=== PATIENT | female | born 1955 ===

== ENCOUNTER 2017-10-07 09:39 | Emergency (ER) | payer OTHER ==
[2017-10-07 09:47] VITALS: BMI 32.3
--- NOTE | 2017-10-07 10:25 | ED PDOC ---
HPI: General Adult Time Seen by Provider: 10/07/17 10:22 Chief Complaint (Nursing): High Blood Pressure Chief Complaint (Provider): HTN History Per: Patient Additional Complaint(s): 61-year-old female with history of hypertension presents to emergency department with headache for 2 weeks. Patient states she has been noncompliant with hypertension meds which include valsartan, Coreg and amlodipine. Patient has not taken her meds in 2 weeks because she could not afford to get the medication. Patient states she is picking up her medications tomorrow from the pharmacy. She rates her headache as a 6 out of 10 upon arrival, denies any dizziness or vision changes, no chest pain, shortness of breath or dyspnea on exertion. Patient states headache is resolved when she takes Tylenol. PMD: Dr. John Paul Singh Past Medical History Reviewed: Historical Data, Nursing Documentation, Vital Signs Vital Signs: Last Vital Signs Temp 96.3 F L 10/07/17 09:48 Pulse 78 10/07/17 12:32 Resp 19 10/07/17 12:32 BP 180/80 H 10/07/17 12:32 Pulse Ox 98 10/07/17 12:32 - Medical History PMH: Asthma, CHF, Diabetes, HTN, Hypercholesterolemia - Surgical History Surgical History: Cholecystectomy, (x 2) - Family History Family History: States: No Known Family Hx - Living Arrangements Living Arrangements: With Family - Social History Current smoker - smoking cessation education provided: No Alcohol: None Drugs: Denies - Home Medications Home Medications: Ambulatory Orders Medication Instructions Recorded Albuterol HFA [Ventolin HFA 90 2 puff IH [id number] PRN #1 inhaler 10/23/14 mcg/actuation (8 g)] Atorvastatin [Lipitor] 40 mg PO DAILY 01/28/15 Chlorthalidone [Chlorthalidone] 25 mg PO DAILY 01/28/15 Fenofibrate [Tricor] 145 mg PO DAILY 01/28/15 Insulin Glulisine [Apidra] 20 units SC TID 01/28/15 MetFORMIN [glucoPHAGE] 1,000 mg PO BID 01/28/15 Montelukast Sodium [Montelukast 10 mg PO DAILY 01/28/15 Sodium] Valsartan [Valsartan] 320 mg PO DAILY 01/28/15 Ascorbic Acid [Vitamin C] 500 mg PO TID 05/18/15 Aspirin [Aspirin EC] 81 mg PO DAILY 05/18/15 Biotin/[place]/Ca/Cysteine/Dim2 1 tab PO DAILY 05/18/15 [Leader Hair, Skin & Nails] Ca Pantothenate/Folic Acid/V [Once 1 tab PO DAILY 05/18/15 Daily Multi-Vitamin] Insulin Detemir [Levemir] 20 unit SC HS 05/18/15 amLODIPine [Norvasc] 10 mg PO DAILY 05/18/15 Carvedilol [Coreg] 6.25 mg PO DAILY 10/07/17 Gemfibrozil [Lopid] 600 mg PO BID 10/07/17 Glimepiride [amaRYL] 4 mg PO DAILY 10/07/17 Insulin Lispro [Humalog (Insulin 10 units SC TID 10/07/17 Lispro)] Omeprazole [Omeprazole] 20 mg PO DAILY 10/07/17 Saxagliptin HCl/Metformin HCl 1 tab PO HS 10/07/17 [Kombiglyze Xr 2.5-1,000 mg Tab] - Allergies Allergies/Adverse Reactions: Allergies Allergy/AdvReac Type Severity Reaction Status Date / Time No Known Allergies Allergy Verified 10/23/14 09:03 Review of Systems ROS Statement: Except As Marked, All Systems Reviewed And Found Negative Eyes: Negative for: Vision Change Cardiovascular: Negative for: Chest Pain, Palpitations Gastrointestinal: Negative for: Nausea, Vomiting Neurological: Positive for: Headache. Negative for: Dizziness Physical Exam - Reviewed Nursing Documentation Reviewed: Yes Vital Signs Reviewed: Yes - Physical Exam Appears: Positive for: Well Skin: Negative for: Rash Eye Exam: Positive for: Normal appearance Cardiovascular/Chest: Positive for: Regular Rate, Rhythm Respiratory: Positive for: Normal Breath Sounds. Negative for: Wheezing, Respiratory Distress Extremity: Negative for: Pedal Edema Neurologic/Psych: Positive for: Alert, Oriented - Laboratory Results Result Diagrams: 10/07/17 11:02 10/07/17 11:02 - ECG Interpretation Of ECG: Normal sinus rhythm 72 bpm, no acute findings, reviewed by PA and ED attending O2 Sat by Pulse Oximetry: 97 Pulse Ox Interpretation: Normal Medical Decision Making Medical Decision Makin61 year old female with HTN, off meds now for 2 weeks Plan: CBC CMP Trop EKG Patient given all 3 medications for high blood pressure that she normally takes daily, valsartan 320 mg tablet, Coreg 6.25 mg tablet and amlodipine 10 mg tablet. 11:34 am: glucose is 348, 5 units reg insulin SC given. 12:40 pm: repeat glucose is 262, repeat BP: 168/80. Headache resolved. Patient states she will be picking up prescriptions for blood pressure meds tomorrow. I counseled patient on importance of taking blood pressure meds daily and not skipping doses. Patient was instructed to take all medications as directed as prescribed and to follow up on Thursday with primary care doctor. Disposition - Clinical Impression Clinical Impression: High blood pressure, Hyperglycemia due to type 2 diabetes mellitus - Patient ED Disposition Is Patient to be Admitted: No Counseled Patient/Family Regarding: Studies Performed, Diagnosis, Need For Followup - Disposition Referrals: [facility] [Outside] Disposition: Routine/Home Disposition Time: 12:44 Condition: STABLE Additional Instructions: Take blood pressure meds daily, do not skip doses. Follow-up Thursday with primary care doctor. Instructions: Chronic Hypertension (ED), Diabetic Hyperglycemia (ED) Forms: [employer] (Bur[place]ian)
[2017-10-07 11:08] LABS: BASO # 0.1 K/uL (0.0-0.2); BASO % 0.9 % (0.0-2.0); EOS # 0.1 K/uL (0.0-0.7); EOS % 1.8 % (0.0-4.0); HEMOGLOBIN 13.7 g/dL (12.0-16.0); LYMPH # 1.8 K/uL (1.0-4.3); LYMPH % 24.6 % (20.0-40.0); MEAN CELL VOLUME 87.2 fl (81.0-99.0); MEAN CORPUSCULAR HEMOGLOBIN 29.5 pg (27.0-31.0); MEAN CORPUSCULAR HGB CONC 33.8 g/dL (33.0-37.0); MEAN PLATELET VOLUME 9.8 fl (7.2-11.7); MONO # 0.7 K/uL (0.0-0.8); MONO % 9.7 % (0.0-10.0); NEUT # 4.6 K/uL (1.8-7.0); NRBC % 0.1 % (0.0-0.0); RBC 4.63 Mil/uL (3.80-5.20); RED CELL DISTRIBUTION WIDTH 13.7 % (11.5-14.5); WHITE BLOOD COUNT 7.3 K/uL (4.8-10.8)
[2017-10-07 11:19] LABS: ALBUMIN 3.5 g/dL (3.5-5.0); ALT/SGPT 29 U/L (9-52); AST/SGOT 31 U/L (14-36); BLOOD UREA NITROGEN 21 mg/dl (7-17); CALCIUM 9.5 mg/dL (8.4-10.2); GFR AFRICAN-AMERICAN > 60; GFR NON-AFRICAN AMERICAN > 60
--- NOTE | 2017-10-07 11:19 | CARD ---
APPROVED REPORT EKG Measurement Heart [id number] <Conclusion> Normal sinus rhythm Normal ECG
[2017-10-07] MEDS ORDERED: Insulin Regular 100 units/ml SC STA (11:33)
[2017-10-07] MEDS ORDERED: Insulin Regular 100 units/ml ONE (12:00)
[2017-10-07 13:15] VITALS: BP 128/78; PULSE 80; RESP 18; TEMP 97.7; O2SAT 98
== END 2017-10-07 13:15 | disposition home or self-care (01) ==
LOC: H.ER 09:39
DX: I11.0 Hypertensive heart disease with heart failure (principal); E11.65 Type 2 diabetes mellitus with hyperglycemia; Z79.4 Long term (current) use of insulin; Z91.14 Patient's other noncompliance with medication regimen; E78.00 Pure hypercholesterolemia, unspecified; I50.9 Heart failure, unspecified; J45.909 Unspecified asthma, uncomplicated; Z79.82 Long term (current) use of aspirin

== ENCOUNTER 2018-02-12 19:07 | Emergency (ER) | payer OTHER ==
[2018-02-12 19:07] VITALS: BMI 32.3
--- NOTE | 2018-02-12 20:47 | ED PDOC ---
Lower Extremity Pain/Injury Time Seen by Provider: 02/12/18 20:03 Chief Complaint (Nursing): Lower Extremity Problem/Injury Chief Complaint (Provider): bilateral leg swelling and pain History Per: Patient History/Exam Limitations: no limitations Onset/Duration Of Symptoms: Days (x6 weeks) Current Symptoms Are (Timing): Still Present Additional Complaint(s): 62 year old female presents to the emergency department complaining of bilateral leg pain and swelling, left worse than right, onset six weeks. Patient states it has been worsening, but denies chest pains and shortness of breath. Today she reports going to the nonprofit director at [facility], who sent her here due to concern about a DVT. PMD: Ishmael Villanueva Past Medical History Reviewed: Historical Data, Nursing Documentation, Vital Signs Vital Signs: Last Vital Signs Temp 98.2 F 02/12/18 19:22 Pulse 82 02/12/18 19:22 Resp 18 02/12/18 19:22 BP 186/74 H 02/12/18 19:22 Pulse Ox 99 02/12/18 19:22 - Medical History PMH: Asthma, CHF, Diabetes, HTN, Hypercholesterolemia Denies: HIV, Chronic Kidney Disease - Surgical History Surgical History: Cholecystectomy, (x 2) - Family History Family History: States: Unknown Family Hx - Social History Current smoker - smoking cessation education provided: No Alcohol: None Drugs: Denies - Home Medications Home Medications: Ambulatory Orders Medication Instructions Recorded Albuterol HFA [Ventolin HFA 90 2 puff IH [id number] PRN #1 inhaler 10/23/14 mcg/actuation (8 g)] Atorvastatin [Lipitor] 40 mg PO DAILY 01/28/15 Chlorthalidone [Chlorthalidone] 25 mg PO DAILY 01/28/15 Fenofibrate [Tricor] 145 mg PO DAILY 01/28/15 Insulin Glulisine [Apidra] 20 units SC TID 01/28/15 MetFORMIN [glucoPHAGE] 1,000 mg PO BID 01/28/15 Montelukast Sodium [Montelukast 10 mg PO DAILY 01/28/15 Sodium] Valsartan [Valsartan] 320 mg PO DAILY 01/28/15 Ascorbic Acid [Vitamin C] 500 mg PO TID 05/18/15 Aspirin [Aspirin EC] 81 mg PO DAILY 05/18/15 Biotin/[place]/Ca/Cysteine/Dim2 1 tab PO DAILY 05/18/15 [Leader Hair, Skin & Nails] Ca Pantothenate/Folic Acid/V [Once 1 tab PO DAILY 05/18/15 Daily Multi-Vitamin] Insulin Detemir [Levemir] 20 unit SC HS 05/18/15 amLODIPine [Norvasc] 10 mg PO DAILY 05/18/15 Carvedilol [Coreg] 6.25 mg PO DAILY 10/07/17 Gemfibrozil [Lopid] 600 mg PO BID 10/07/17 Glimepiride [amaRYL] 4 mg PO DAILY 10/07/17 Insulin Lispro [Humalog (Insulin 10 units SC TID 10/07/17 Lispro)] Omeprazole [Omeprazole] 20 mg PO DAILY 10/07/17 Saxagliptin HCl/Metformin HCl 1 tab PO HS 10/07/17 [Kombiglyze Xr 2.5-1,000 mg Tab] - Allergies Allergies/Adverse Reactions: Allergies Allergy/AdvReac Type Severity Reaction Status Date / Time No Known Allergies Allergy Verified 10/23/14 09:03 Review of Systems ROS Statement: Except As Marked, All Systems Reviewed And Found Negative Cardiovascular: Negative for: Chest Pain Respiratory: Negative for: Shortness of Breath Musculoskeletal: Positive for: Leg Pain (bilateral leg pain and swelling, left worse than right) Physical Exam - Reviewed Nursing Documentation Reviewed: Yes Vital Signs Reviewed: Yes - Physical Exam Appears: Positive for: No Acute Distress Head Exam: Positive for: ATRAUMATIC Skin: Positive for: Warm, Dry Eye Exam: Positive for: Normal appearance, EOMI, PERRL ENT: Positive for: Normal ENT Inspection Neck: Positive for: Normal, Painless ROM, Supple Cardiovascular/Chest: Positive for: Regular Rate, Rhythm. Negative for: Murmur Respiratory: Positive for: Normal Breath Sounds. Negative for: Accessory Muscle Use, Respiratory Distress Gastrointestinal/Abdominal: Positive for: Normal Exam, Soft. Negative for: Tenderness Back: Positive for: Normal Inspection. Negative for: L CVA Tenderness, R CVA Tenderness Extremity: Positive for: Normal ROM, Calf Tenderness (mild left), Swelling ( bilateral lower extremities, left slightly more than right), Other (Stasis dermatitis on bilateral lower extremities) Neurologic/Psych: Positive for: Alert, Oriented (x3). Negative for: Motor/ Sensory Deficits - Laboratory Results Result Diagrams: 02/12/18 20:50 02/12/18 20:50 - ECG O2 Sat by Pulse Oximetry: 99 (RA) Pulse Ox Interpretation: Normal Medical Decision Making Medical Decision Making: Initial Impression: Bilat leg swelling and pain Ddx: deep vein thrombosis, lymphedema, r/o chronic heart failure, r/o chronic renal failure Time: 20:38 Initial Plan: --BNP --BMP --CBC with differential --Bilat LE US 21:59 Bilat LE US FINDINGS: Right deep veins: No DVT in the right common femoral, femoral, proximal deep femoral or popliteal veins. The veins demonstrate normal color flow, are normally compressible, with normal phasic flow and/or augmentation response. Right superficial veins: No thrombus in the visualized right great saphenous vein. Left deep veins: No DVT in the left common femoral, femoral, proximal deep femoral or popliteal veins. The veins demonstrate normal color flow, are normally compressible, with normal phasic flow and/or augmentation response. Left superficial veins: No thrombus in the visualized left great saphenous vein. Soft tissues: Edema noted. IMPRESSION: No evidence of deep venous thrombosis in the visualized veins of the bilateral lower extremities. Scribe Attestation: Documented by Payton Hammer, acting as a scribe for Pranav Jacinto MD. Provider Scribe Attestation: All medical entries made by the Scribe were at my direction and personally dictated by me. I have reviewed the chart and agree that the record accurately reflects my personal performance of the history, physical exam, medical decision making, and the department course for this patient. I have also personally directed, reviewed, and agree with the discharge instructions and disposition. Disposition - Clinical Impression Clinical Impression: Pain and swelling of lower leg, Pain and swelling of right lower leg - Patient ED Disposition Is Patient to be Admitted: No Doctor Will See Patient In The: Office Counseled Patient/Family Regarding: Studies Performed, Diagnosis, Need For Followup - Disposition Referrals: [facility] [Outside] Disposition: Routine/Home Disposition Time: 23:28 Condition: GOOD Additional Instructions: Wear compression stockings. Follow up with your PCP in 2-3 days. Instructions: Dependent Edema (DC)
[2018-02-12 20:54] LABS: BASO # 0.1 K/uL (0.0-0.2); BASO % 0.8 % (0.0-2.0); EOS # 0.2 K/uL (0.0-0.7); EOS % 2.5 % (0.0-4.0); HEMOGLOBIN 13.5 g/dL (12.0-16.0); LYMPH # 2.6 K/uL (1.0-4.3); LYMPH % 37.2 % (20.0-40.0); MEAN CELL VOLUME 87.4 fl (81.0-99.0); MEAN CORPUSCULAR HEMOGLOBIN 29.6 pg (27.0-31.0); MEAN CORPUSCULAR HGB CONC 33.9 g/dL (33.0-37.0); MEAN PLATELET VOLUME 8.7 fl (7.2-11.7); MONO # 0.9 K/uL (0.0-0.8); MONO % 12.7 % (0.0-10.0); NEUT # 3.3 K/uL (1.8-7.0); NEUT % 46.8 % (50.0-75.0); RBC 4.55 Mil/uL (3.80-5.20); WHITE BLOOD COUNT 7.1 K/uL (4.8-10.8)
[2018-02-12 21:03] LABS: BLOOD UREA NITROGEN 28 mg/dl (7-17); CALCIUM 9.6 mg/dL (8.4-10.2); GFR AFRICAN-AMERICAN > 60; GFR NON-AFRICAN AMERICAN > 60
[2018-02-12 21:11] LABS: B-TYPE NATRIURETIC PEPTIDE 127 pg/ml (0-900)
[2018-02-12 23:47] VITALS: BP 155/93; PULSE 77; RESP 16; TEMP 98; O2SAT 96
--- NOTE | 2018-02-13 09:03 | US ---
PROCEDURE: Bilateral lower extremity venous duplex Doppler. HISTORY: bilateral leg swelling pain COMPARISON: Lower extremity ultrasound dated 05/18/2015. TECHNIQUE: Bilateral common femoral, superficial femoral, popliteal and posterior tibial veins were evaluated. Flow was assessed with color Doppler, compressibility, assessment of phasic flow and augmentation response. FINDINGS: COMMON FEMORAL VEIN: Right CFV: Unremarkable. Left CFV: Unremarkable. SUPERFICIAL FEMORAL VEIN: Right SFV: Unremarkable. Left SFV: Unremarkable. POPLITEAL VEIN: Right Popliteal: Unremarkable. Left Popliteal: Unremarkable. POSTERIOR TIBIAL VEIN: Right PTV: Unremarkable. Left PTV: Unremarkable. OTHER FINDINGS: None. IMPRESSION: No evidence of deep venous thrombosis.
== END 2018-02-12 23:45 | disposition home or self-care (01) ==
LOC: H.ER 19:07
DX: M79.89 Other specified soft tissue disorders (principal); M79.662 Pain in left lower leg; M79.661 Pain in right lower leg; E11.9 Type 2 diabetes mellitus without complications; E78.00 Pure hypercholesterolemia, unspecified; I11.0 Hypertensive heart disease with heart failure; J45.909 Unspecified asthma, uncomplicated; Z79.4 Long term (current) use of insulin; Z79.82 Long term (current) use of aspirin

== ENCOUNTER 2018-03-08 11:15 | Emergency (ER) | payer OTHER ==
[2018-03-08 11:16] VITALS: BMI 32.3
[2018-03-08 11:30] VITALS: TEMP 98.4
[2018-03-08] MEDS ORDERED: Sodium Chloride 0.9% 1,000 ML IV STA ×2 (13:02→14:34)
[2018-03-08] MEDS ORDERED: Lidocaine 5% Patch TD STA (13:02)
[2018-03-08] MEDS ORDERED: Insulin Regular 100 units/ml IVP STA ×2 (13:02→14:39)
--- NOTE | 2018-03-08 13:27 | ED PDOC ---
Hyperglycemia/Hypoglycemia Time Seen by Provider: 03/08/18 12:26 Chief Complaint (Nursing): High Blood Sugar Chief Complaint (Provider): Back Pain History Per: Patient History/Exam Limitations: no limitations Onset/Duration Of Symptoms: Days Current Symptoms Are (Timing): Still Present Current Diabetic Medications: Insulin : The patient does not have any of the infectious symptoms listed except for those marked. Additional Complaint(s): 62 y/o female with a PMHx of IDDM presents to the ED after being sent from her PMD for further evaluation. Patient states today, she went to her PMD complaining of lower back pain that radiates down both legs. Patient reports she has a history of herniated disk in her lower back. Patient used to see pain management and received epidurals but has not seen them in years. Patient states this past year that her back pain has been increasingly worse. Patient had her glucose level checked in the office that resulted in the 400s. Patient was asked to come to the ED for further evaluation. Patient reports she is compliant with insulin. Denies incontinence, trauma, saddle paresthesias, abdominal pain, chest pain, shortness of breath, fever, dysuria and hematuria. PMD: Ishmael Villanueva Past Medical History Reviewed: Historical Data, Nursing Documentation, Vital Signs Vital Signs: Last Vital Signs Temp 98.4 F 03/08/18 11:30 Pulse 88 03/08/18 11:30 Resp 20 03/08/18 11:30 BP 157/67 H 03/08/18 11:30 Pulse Ox 96 03/08/18 11:30 - Medical History PMH: Asthma, CHF, Diabetes, HTN, Hypercholesterolemia Denies: HIV, Chronic Kidney Disease - Surgical History Surgical History: Cholecystectomy, (x 2) - Family History Family History: States: Unknown Family Hx - Home Medications Home Medications: Ambulatory Orders Medication Instructions Recorded Albuterol HFA [Ventolin HFA 90 2 puff IH [id number] PRN #1 inhaler 10/23/14 mcg/actuation (8 g)] Atorvastatin [Lipitor] 40 mg PO DAILY 01/28/15 Chlorthalidone [Chlorthalidone] 25 mg PO DAILY 01/28/15 Fenofibrate [Tricor] 145 mg PO DAILY 01/28/15 Insulin Glulisine [Apidra] 20 units SC TID 01/28/15 MetFORMIN [glucoPHAGE] 1,000 mg PO BID 01/28/15 Montelukast Sodium [Montelukast 10 mg PO DAILY 01/28/15 Sodium] Valsartan [Valsartan] 320 mg PO DAILY 01/28/15 Ascorbic Acid [Vitamin C] 500 mg PO TID 05/18/15 Aspirin [Aspirin EC] 81 mg PO DAILY 05/18/15 Biotin/[place]/Ca/Cysteine/Dim2 1 tab PO DAILY 05/18/15 [Leader Hair, Skin & Nails] Ca Pantothenate/Folic Acid/V [Once 1 tab PO DAILY 05/18/15 Daily Multi-Vitamin] Insulin Detemir [Levemir] 20 unit SC HS 05/18/15 amLODIPine [Norvasc] 10 mg PO DAILY 05/18/15 Carvedilol [Coreg] 6.25 mg PO DAILY 10/07/17 Gemfibrozil [Lopid] 600 mg PO BID 10/07/17 Glimepiride [amaRYL] 4 mg PO DAILY 10/07/17 Insulin Lispro [Humalog (Insulin 10 units SC TID 10/07/17 Lispro)] Omeprazole [Omeprazole] 20 mg PO DAILY 10/07/17 Saxagliptin HCl/Metformin HCl 1 tab PO HS 10/07/17 [Kombiglyze Xr 2.5-1,000 mg Tab] Naproxen [Naprosyn] 500 mg PO BID PRN #10 tab 03/08/18 - Allergies Allergies/Adverse Reactions: Allergies Allergy/AdvReac Type Severity Reaction Status Date / Time No Known Allergies Allergy Verified 03/08/18 12:20 Review of Systems ROS Statement: Except As Marked, All Systems Reviewed And Found Negative Constitutional: Positive for: Other (high blood sugar) Musculoskeletal: Positive for: Back Pain (low), Leg Pain (bilateral) Physical Exam - Reviewed Nursing Documentation Reviewed: Yes Vital Signs Reviewed: Yes - Physical Exam Appears: Positive for: In Acute Distress (mild) Skin: Positive for: Normal Color, Warm, Dry. Negative for: Rash Eye Exam: Positive for: Normal appearance Cardiovascular/Chest: Positive for: Regular Rate, Rhythm. Negative for: Murmur Respiratory: Positive for: Normal Breath Sounds, Respiratory Distress Gastrointestinal/Abdominal: Positive for: Normal Exam, Soft. Negative for: Tenderness Back: Positive for: Normal Inspection, Muscle Spasm (bilateral muscle spasms in the lumbar area). Negative for: L CVA Tenderness, R CVA Tenderness, Vertebral Tenderness Extremity: Positive for: Other (dorsalis pedis pulses is 2+ bilaterally). Negative for: Pedal Edema Neurologic/Psych: Positive for: Alert, Oriented (x3). Negative for: Motor/ Sensory Deficits - Laboratory Results Result Diagrams: 03/08/18 13:57 03/08/18 13:57 - ECG O2 Sat by Pulse Oximetry: 96 (RA) Pulse Ox Interpretation: Normal Medical Decision Making Medical Decision Making: Time: 1302 Plan: -- CMP -- CBC with differentials -- Flexeril 10 mg PO -- HumuLIN R 6 units IVP -- Lidoderm 1 ea TD -- Sodium Chloride IV 1000 mls/hr -- Toradol 30 mg IVP -- Nursing Communication -- Urinalysis 1545 On re-evaluation, pt. states pain has improved. Repeat FSBS: 275 Scribe Attestation: Documented by Jason Packer, acting as a scribe for Tyrone Orona PA-C. Provider Scribe Attestation: All medical record entries made by the Scribe were at my direction and personally dictated by me. I have reviewed the chart and agree that the record accurately reflects my personal performance of the history, physical exam, medical decision making, and the department course for this patient. I have also personally directed, reviewed, and agree with the discharge instructions and disposition. Disposition - Clinical Impression Clinical Impression: Hyperglycemia, Low back pain - Patient ED Disposition Is Patient to be Admitted: No - Disposition Referrals: [facility] [Outside] Disposition: Routine/Home Disposition Time: 15:47 Condition: STABLE Additional Instructions: Follow up with your doctor for further evaluation. Return to ED immediately if symptoms worsen. Prescriptions: Naproxen [Naprosyn] 500 mg PO BID PRN #10 tab PRN Reason: Pain Instructions: Low Back Pain (DC), Hyperglycemia, Adult (DC) Forms: [facility] (German) Print Language: PARAGUAY[place]
[2018-03-08] MEDS ORDERED: Lidocaine 5% Patch TD ONE (13:37)
[2018-03-08 14:12] LABS: SQUAMOUS EPITHIAL 1 /hpf (0-5); URINE BILIRUBIN NEGATIVE (NEGATIVE); URINE BLOOD NEGATIVE (NEGATIVE); URINE CLARITY CLOUDY (Clear); URINE COLOR YELLOW (YELLOW); URINE GLUCOSE (UA) >=500 mg/dL (Normal); URINE HYALINE CAST 0-2 /hpf (0-2); URINE LEUKOCYTE ESTERASE NEG Leu/uL (Negative); URINE PROTEIN >=500 mg/dL (NEGATIVE); URINE UROBILINOGEN 0.2-1.0 mg/dL (0.2-1.0)
[2018-03-08 14:21] LABS: BASO # 0.1 K/uL (0.0-0.2); BASO % 0.8 % (0.0-2.0); EOS # 0.1 K/uL (0.0-0.7); EOS % 1.6 % (0.0-4.0); HEMOGLOBIN 14.6 g/dL (12.0-16.0); LYMPH # 2.6 K/uL (1.0-4.3); LYMPH % 32.6 % (20.0-40.0); MEAN CELL VOLUME 86.4 fl (81.0-99.0); MEAN CORPUSCULAR HEMOGLOBIN 30.1 pg (27.0-31.0); MEAN CORPUSCULAR HGB CONC 34.9 g/dL (33.0-37.0); MONO # 0.8 K/uL (0.0-0.8); MONO % 9.6 % (0.0-10.0); NEUT # 4.5 K/uL (1.8-7.0); NEUT % 55.4 % (50.0-75.0); NRBC % 0.1 % (0.0-0.0); RBC 4.84 Mil/uL (3.80-5.20); RED CELL DISTRIBUTION WIDTH 13.5 % (11.5-14.5); WHITE BLOOD COUNT 8.1 K/uL (4.8-10.8)
[2018-03-08 14:47] LABS: ALB/GLOB RATIO 1.1 (1.0-2.1); ALT/SGPT 45 U/L (9-52); AST/SGOT 34 U/L (14-36); BLOOD UREA NITROGEN 40 mg/dl (7-17); CALCIUM 9.9 mg/dL (8.4-10.2); GFR AFRICAN-AMERICAN > 60; GFR NON-AFRICAN AMERICAN 56
[2018-03-08 15:55] VITALS: BP 162/59; PULSE 74; RESP 18; O2SAT 98
[2018-03-08] MEDS ORDERED: Insulin Regular 100 units/ml SC SCH (16:30)
== END 2018-03-08 16:01 | disposition home or self-care (01) ==
LOC: H.ER 11:15
DX: E11.65 Type 2 diabetes mellitus with hyperglycemia (principal); M54.5 Low back pain; I11.0 Hypertensive heart disease with heart failure; J45.909 Unspecified asthma, uncomplicated; Z79.4 Long term (current) use of insulin; E78.00 Pure hypercholesterolemia, unspecified; Z79.82 Long term (current) use of aspirin; I50.9 Heart failure, unspecified
CPT/HCPCS: 80053; 81003; 82948; 85025; 96361; 96374; 96375; 96376; 99284; J1885; J7030